=== PATIENT | female | born 1970 | race Hispanic/Latino ===

== ENCOUNTER → 2017-07-24 | Outpatient (CLI) | payer OTHER ==
[~2017-07-24] MED LIST: FLURBIPROFEN PO; LEVOFLOXACIN 250MG/D5W 50ML 50 ML ONE; LEVOFLOXACIN 500MG/D5W 100ML 100 ML IV ONE; TYLENOL WITH C1 EACH PO; VASOTEC10 M1 PO
== END ==
LOC: RAD 05:00 → OR 07-25 11:27 → EDSTATUS 07-25 13:30
PROVIDERS: ATTEND Urology
DX: Z01.818 Encounter for other preprocedural examination (principal); N20.0 Calculus of kidney
CPT/HCPCS: 81025; 93005; J1956

== ENCOUNTER → 2017-08-07 | Day surgery (SDC) | payer OTHER ==
[~2017-08-07] MED LIST changes: +DEXAMETHASONE SOD PHOS INJ 4 MG/ML VIAL ONE; +FENTANYL CITRATE/PF 100MCG/2 ML INJ ONE; +LIDOCAINE HCL 2% LOCAL INJ 5 ML SDV VIAL INJ ONE; +MIDAZOLAM HCL 2 MG/2 ML VIAL ONE; +ONDANSETRON HCL INJ 2 MG/ML VIAL ONE; +PHENYLEPHRINE HCL 1% 10 MG/ML VIAL ONE; +PROPOFOL IV EMULSION 10 MG/ML 20 ML VIAL ONE; +SEVOFLURANE INHAL SOLN 250 ML PEN BTL ONE
--- NOTE | 2017-08-07 10:17 | Operative Report ---
DATE OF PROCEDURE: August 07, 2017 PREOPERATIVE DIAGNOSIS: Right nephrolithiasis stent. POSTOPERATIVE DIAGNOSIS: Right nephrolithiasis stent. OPERATION PERFORMED: Extracorporal shock wave lithotripsy. RIG BUILDER: None. ANESTHESIA: General. CLINICAL INDICATION NOTE: This is a patient who came for treatment of a stone. She does have a stent in place. Procedure was discussed with her. She was advised of the potential benefits and complications and accepted. DESCRIPTION OF PROCEDURE AND FINDINGS: After the proper level of anesthesia was achieved, the stone was in brought into focus for treatment and treated with 2000 shocks. The stone disintegrated quite quickly. Following the procedure, the patient was transferred in satisfactory condition to the recovery room. She will be followed as an outpatient. Job#: [id number] FRANK
== END | disposition home or self-care (01) ==
LOC: OR 06:13
PROVIDERS: ATTEND Urology
PROC: 0TF3XZZ Fragmentation in Right Kidney Pelvis, External Approach (ICD-10-PCS; principal; 2017-08-07 08:30)
DX: N20.0 Calculus of kidney (principal); Z96.0 Presence of urogenital implants; M19.90 Unspecified osteoarthritis, unspecified site; I10 Essential (primary) hypertension; Z88.0 Allergy status to penicillin
CPT/HCPCS: 50590; 81025; J1100; J1956 ×2; J2001; J2250; J2370; J2405

== ENCOUNTER → 2017-08-29 | Outpatient (CLI) | payer OTHER ==
[~2017-08-29] MED LIST changes: -DEXAMETHASONE SOD PHOS INJ 4 MG/ML VIAL ONE; -FENTANYL CITRATE/PF 100MCG/2 ML INJ ONE; -LEVOFLOXACIN 250MG/D5W 50ML 50 ML ONE; -LEVOFLOXACIN 500MG/D5W 100ML 100 ML IV ONE; -LIDOCAINE HCL 2% LOCAL INJ 5 ML SDV VIAL INJ ONE; -MIDAZOLAM HCL 2 MG/2 ML VIAL ONE; -ONDANSETRON HCL INJ 2 MG/ML VIAL ONE; -PHENYLEPHRINE HCL 1% 10 MG/ML VIAL ONE; -PROPOFOL IV EMULSION 10 MG/ML 20 ML VIAL ONE; -SEVOFLURANE INHAL SOLN 250 ML PEN BTL ONE
--- NOTE | 2017-08-29 15:05 | Diagnostic Imaging Report ---
PROCEDURE:X-RAY ABDOMEN - KUB COMPARISON:None. INDICATIONS:KIDNEY STONES FINDINGS: Nonobstructed bowel gas pattern. No air-filled, dilated loops of bowel. Right double-J internal ureteral stent in place. 2-3 mm radiopaque density projects in the lower pole of the right renal shadow. 2 mm rounded radiopaque density projecting adjacent to the distal portion of the stent and over the right aspect of the sacrum may represent a ureteral calculus or phlebolith. Multiple other phleboliths are noted in the left pelvis. No acute bony abnormalities. CONCLUSION: Right double-J internal ureteral stent in place. 2-3 mm obstructing calculus in the right kidney. 2 mm radiopaque density projecting adjacent to the distal portion of the stent in the pelvis may represent a ureteral calculus or phlebolith. Christian Neil M.D. Dictated by: Christian Neil M.D. on 08/29/2017 at 15:07 Electronically approved by: Christian Neil M.D. on 08/29/2017 at 15:07
== END ==
LOC: RAD 10:47
PROVIDERS: ATTEND Urology
DX: N20.1 Calculus of ureter (principal); T19.1XXA Foreign body in bladder, initial encounter
CPT/HCPCS: 74018

== ENCOUNTER → 2017-10-02 | Day surgery (SDC) | payer OTHER ==
[~2017-10-02] MED LIST changes: +BELLADONNA/OPIUM 30 MG SUPP RC ONE; +DEXAMETHASONE SOD PHOS INJ 4 MG/ML VIAL ONE; +FENTANYL CITRATE/PF 100MCG/2 ML INJ ONE; +IOPAMIDOL 610MG/1ML 300 MG/ML VIAL IV ONE; +LEVOFLOXACIN 500MG/D5W 100ML 100 ML IV ONE; +LIDOCAINE HCL 2% LOCAL INJ 5 ML SDV VIAL INJ ONE; +ONDANSETRON HCL INJ 2 MG/ML VIAL ONE; +PROPOFOL IV EMULSION 10 MG/ML 20 ML VIAL ONE; +SEVOFLURANE INHAL SOLN 250 ML PEN BTL ONE
--- NOTE | 2017-10-02 20:55 | Operative Report ---
DATE OF PROCEDURE: October 02, 2017 PREOPERATIVE DIAGNOSIS: 1. Right nephrolithiasis. 2. Right double J stent. 3. Right hydronephrosis. 4. Right hydroureter. 5. Microhematuria. OPERATION PERFORMED: 1. Cystoscopy and left retrograde pyelogram under fluoroscopic control. This was done for a separate indication for the microhematuria not connected to the contralateral side. 2. Removal of double J stent from the right side. 3. Right retrograde pyelogram under fluoroscopic control. 4. Right ureteroscopy with laser fragmentation of stone. 5. Placement of double J stent 6-Taiwanese 22 cm long to the right side. 6. Interpretation of x-ray. Radiologist not present. 7. Supervision of fluoroscopy. Radiologist not present. [place]ER[place] OPERATOR: None. ANESTHESIA: General. CLINICAL INDICATION NOTE: This is a 47-year-old patient with history of right nephrolithiasis. She also had multiple gallstones. The patient was brought for further treatment of the kidney stones. She had some dilation of the collecting system as well. Procedure was discussed with the patient. Potential benefits and complications discussed and accepted. DESCRIPTION OF PROCEDURE AND FINDINGS: After proper level of anesthesia was achieved, the patient was placed in lithotomy position, prepped and draped in the usual sterile fashion. Urethra inspected and unremarkable. Bladder outlet is normal. Bladder mucosa is unremarkable. Double J stent is protruding from the right ureteral orifice. Retrograde pyelogram was done on the left side. Left collecting system is normal. Following this the double J stent was removed from the right side. Open-end catheter was inserted and retrograde pyelogram demonstrating some dilation of the calices as well as some area of irregularity in the ureter. The guidewire was kept in place and a flexible ureteroscopy was done. No intrinsic lesions were identified. Along the ureter some small fragments of stone were identified and fragmented further with Holmium laser using a 200 fiber. Following this a guidewire was kept in place and a double J stent 6-Taiwanese 22 cm long was properly positioned on the right side. Interpretation of x-ray was done by me. Supervision of fluoroscopy done by me. Radiologist not present. Patient tolerated the procedure well and was transferred in satisfactory condition to recovery room. She will be followed for further treatment. Job#: [id number]
--- NOTE | 2017-10-03 14:20 | Diagnostic Imaging Report ---
PROCEDURE: X-RAY RETROGRADE PYELOGRAM COMPARISON: None. INDICATIONS: Not provided. FINDINGS: A total of 22 intraoperative spot images of the abdomen and pelvis were obtained. There is retrograde cannulization of both ureters with contrast injection. Indwelling right double-J ureteral stent was removed. There is moderate right hydronephrosis. A new right double-J ureteral stent was placed following ureteroscopy involving the right renal pelvis and lower pole calyx. The left ureter and collecting system appears normal. Cumulative fluoro time: 23 seconds Cumulative area dose product: 193.46 cGycm2 Cumulative air kerma: 5.29 mGy CONCLUSION: Retrograde pyelogram as described above. Jimmy Dubon D.O. Dictated by: Jimmy Dubon D.O. on 10/03/2017 at 14:24 Electronically approved by: Jimmy Dubon D.O. on 10/03/2017 at 14:24
--- OUTSIDE RECORDS SUMMARY | 2018-01-14 13:50 | XMS REPORT ---
Author Author [facility] Address Unknown Phone Unavailable Care Team Providers Care Social And Human Services Assistant Name Role Phone GAURANG BAEZ Unavailable Unavailable Problems This patient has no known problems. Allergies, Adverse Reactions, Alerts This patient has no known allergies or adverse reactions. Medications This patient has no known medications. Results Test Description Test Time Test Comments Text Results Atomic Results Result Comments ABDOMEN-1VIEW (KUB) 2018-01-07 16:16:00 [place] [address] Patient Name: GAYATRI LEYVA MR #: [id number] : 1970 Age/Sex: 47/F Req #: [id number] Adm Physician: Ordered by: GAURANG BAEZ MD Report #: [id number] Location: [facility] Room/Bed: __ Procedure: [id number] DX/ABDOMEN-1VIEW (KUB) Exam Date: 01/07/18 Exam Time: 1515 REPORT STATUS: Signed EXAMINATION: ABDOMEN-1VIEW (KUB) INDICATION: CALCULUS OF KIDNEY COMPARISON: None FINDINGS: There is a right sided internal ureteral stent with the proximal aspect overlying the right renal pelvis and the distal aspect overlying the bladder. Bowel gas partially obscures visualization of the kidneys. There is a 2 mm calcification overlying the proximal right ureter. Phleboliths overlie the pelvis. There is a nonobstructive bowel gas pattern. No acute bony findings. IMPRESSION: Right-sided internal ureteral stent in place with likely 2 mm right proximal ureteral stone. Signed by: Dr. Chapito Stephen MD on 01/07/2018 4:22 PM Dictated By: CHAPITO STEPHEN MD 21 Transcribed By : DIRK on 01/07/181621 COPY TO: GAURANG BAEZ MD ABDOMEN-1VIEW (KUB) 2017-10-28 14:48:00 [place] [address] Patient Name: GAYATRI LEYVA MR #: [id number] : 1970 Age/Sex: 47/F Req #: [id number] Adm Physician: Ordered by: GAURANG BAEZ MD Report #: [id number] Location: [facility] Room/Bed: __ Procedure: [id number] DX/ABDOMEN-1VIEW (KUB) Exam Date: Exam Time: REPORT STATUS: Signed PROCEDURE: X-RAY ABDOMEN - KUB COMPARISON: KUB 08/29/17. INDICATIONS: CALCULUS OF KIDNEY FINDINGS: No dilated loops of bowel or abnormal air- fluid levels patterns. No free air underneath the diaphragm. Right sided double J internal ureteral stent is in place. Previously noted calcification overlying the right kidney is no longer visualized. There are two calcifications overlying the left mid kidney, one measuring 5 mm and an additional one measuring 2 mm. Multiple pelvic phleboliths are again noted. No acute bony findings. CONCLUSION: Two calcifications measuring 5 mm and 2 mm overlying the left kidney may represent stones. Right sided double J ureteral stent. Previously noted right renal stone is no longer visualized. Dictated by: CHAPITO STEPHEN M.D. on 10/28/2017 at 14:48 Electronically approved by: CHAPITO STEPHEN M.D. on 10/28/2017 at 14: 48 Dictated By: CHAPITO STEPHEN MD 47 Transcribed By: LOY on 10/28/171447 COPY TO: GAURANG BAEZ MD RETROGRADE PYELOGRAM 2017-10-03 14:25:00 [place] [address] Patient Name: GAYATRI LEYVA MR #: [id number] : 1970 Age/Sex: 47/F Req #: [id number] [facility] Physician: Ordered by: GAURANG BAEZ MD Report #: [id number] Location: OR Room/Bed: _ Procedure: [id number] DX/RETROGRADE PYELOGRAM Exam Date: 10/02/17 Exam Time: 1030 REPORT STATUS: Signed PROCEDURE: X- RAY RETROGRADE PYELOGRAM COMPARISON: None. INDICATIONS: Not provided. FINDINGS: A total of 22 intraoperative spot images of the abdomen and pelvis were obtained. There is retrograde cannulization of both ureters with contrast injection. Indwelling right double-J ureteral stent was removed. There is moderate right hydronephrosis. A new right double-J ureteral stent was placed following ureteroscopy involving the right renal pelvis and lower pole calyx. The left ureter and collecting system appears normal. Cumulative fluoro time: 23 seconds Cumulative area dose product : 193.46 cGycm2 Cumulative air kerma: 5.29 mGy CONCLUSION: Retrograde pyelogram as described above. Haile Dubon D.O. Dictated by : Haile Dubon D.O. on 10/03/2017 at 14:24 Electronically approved by: Haile Dubon D.O. on 10/03/2017 at 14:24 Dictated By: HAILE DUBON DO 24 Transcribed By: LOY on 10/03/171424 COPY TO: GAURANG BAEZ MD ABDOMEN-1VIEW (KUB) [place] [address] Patient Name: GAYATRI LEYVA MR #: [id number] : 1970 Age/Sex: 47/F Req #: [id number] Adm Physician: Ordered by: GAURANG BAEZ MD Report #: [id number] Location: [facility] Room/Bed: Procedure: [id number] DX/ABDOMEN-1VIEW (KUB) Exam Date: 08/29/17 Exam Time: 1140 REPORT STATUS: Signed PROCEDURE: X-RAY ABDOMEN - KUB COMPARISON: None. INDICATIONS: KIDNEY STONES FINDINGS: Nonobstructed bowel gas pattern. No air-filled, dilated loops of bowel. Right double-J internal ureteral stent in place. 2-3 mm radiopaque density projects in the lower pole of the right renal shadow. 2 mm rounded radiopaque density projecting adjacent to the distal portion of the stent and over the right aspect of the sacrum may represent a ureteral calculus or phlebolith. Multiple other phleboliths are noted in the left pelvis. No acute bony abnormalities. CONCLUSION: Right double-J internal ureteral stent in place. 2-3 mm obstructing calculus in the right kidney. 2 mm radiopaque density projecting adjacent to the distal portion of the stent in the pelvis may represent a ureteral calculus or phlebolith. Gavin Neil M.D. Dictated by: Gavin Neil M.D. on 08/29/2017 at 15: 07 Electronically approved by: Gavin Neil M.D. on 08/29/2017 at 15:07 Dictated By: GAVIN NEIL MD 1507 Transcribed By: LOY on 08/29/17 1507 COPY TO: GAURANG BAEZ MD
== END | disposition home or self-care (01) ==
LOC: OR 08:32
PROVIDERS: ATTEND Urology
DX: N20.1 Calculus of ureter (principal); N20.0 Calculus of kidney; N13.30 Unspecified hydronephrosis; K80.20 Calculus of gallbladder without cholecystitis without obstruction; I10 Essential (primary) hypertension; Z88.0 Allergy status to penicillin; Z01.810 Encounter for preprocedural cardiovascular examination
CPT/HCPCS: 52356; 74420; 81025; 93005; J1100; J1956; J2001; J2405; Q9967; C2617

== ENCOUNTER → 2017-10-28 | Outpatient (CLI) | payer OTHER ==
[~2017-10-28] MED LIST changes: -BELLADONNA/OPIUM 30 MG SUPP RC ONE; -DEXAMETHASONE SOD PHOS INJ 4 MG/ML VIAL ONE; -FENTANYL CITRATE/PF 100MCG/2 ML INJ ONE; -IOPAMIDOL 610MG/1ML 300 MG/ML VIAL IV ONE; -LEVOFLOXACIN 500MG/D5W 100ML 100 ML IV ONE; -LIDOCAINE HCL 2% LOCAL INJ 5 ML SDV VIAL INJ ONE; -ONDANSETRON HCL INJ 2 MG/ML VIAL ONE; -PROPOFOL IV EMULSION 10 MG/ML 20 ML VIAL ONE; -SEVOFLURANE INHAL SOLN 250 ML PEN BTL ONE
--- NOTE | 2017-10-28 14:54 | Diagnostic Imaging Report ---
PROCEDURE:X-RAY ABDOMEN - KUB COMPARISON:KUB 08/29/17. INDICATIONS:CALCULUS OF KIDNEY FINDINGS: No dilated loops of bowel or abnormal air-fluid levels patterns. No free air underneath the diaphragm. Right sided double J internal ureteral stent is in place. Previously noted calcification overlying the right kidney is no longer visualized. There are two calcifications overlying the left mid kidney, one measuring 5 mm and an additional one measuring 2 mm. Multiple pelvic phleboliths are again noted. No acute bony findings. CONCLUSION: Two calcifications measuring 5 mm and 2 mm overlying the left kidney may represent stones. Right sided double J ureteral stent. Previously noted right renal stone is no longer visualized. Dictated by: CHAPITO STEPHENSON M.D. on 10/28/2017 at 14:48 Electronically approved by: CHAPITO STEPHENSON M.D. on 10/28/2017 at 14:48
== END ==
LOC: RAD 12:59
PROVIDERS: ATTEND Urology
DX: N20.0 Calculus of kidney (principal)
CPT/HCPCS: 74018

== ENCOUNTER → 2017-12-05 | Day surgery (SDC) | payer OTHER ==
[~2017-12-05] MED LIST changes: +FENTANYL CITRATE/PF 100MCG/2 ML INJ ONE; +LEVOFLOXACIN 250MG/D5W 50ML 50 ML ONE; +LEVOFLOXACIN 500MG/D5W 100ML 100 ML IV ONE; +MIDAZOLAM HCL 2 MG/2 ML VIAL ONE
[2017-12-05 14:50] VITALS: BP 128/78
--- NOTE | 2017-12-05 18:12 | Operative Report ---
DATE OF PROCEDURE: December 05, 2017 SERVICE: Urology. PREOPERATIVE DIAGNOSES: 1. Bilateral nephrolithiasis. 2. Right double J stent. 3. Microhematuria. POSTOPERATIVE DIAGNOSES: 1. Bilateral nephrolithiasis. 2. Right double J stent. 3. Microhematuria. OPERATION PERFORMED: Extracorporeal shockwave lithotripsy and lithotripsy of left kidney stone. [place] ATTENDANT: None. ANESTHESIA: General. CLINICAL INDICATION NOTE: This is a 47-year-old patient who has stone in both sides. She does have a stent on the right side. She was brought for lithotripsy of left kidney stone. Procedure was discussed with the patient. She knows the potential benefits and complications. DESCRIPTION OF PROCEDURE AND FINDINGS: After proper level of anesthesia was achieved, the patient was placed in supine position. The stone was brought to focus of treatment and treated with 1500 shocks initially at 60 per minute, then 90 per minute and eventually 120 per minute. The stone disintegrated very well. Following this, fluoroscopy was done on the right side. No stones were identified on fluoroscopy. Patient tolerated procedure well, was transferred in satisfactory condition to recovery room. She will be followed as outpatient. Postop orders given. Job#: [id number] EV
== END | disposition home or self-care (01) ==
LOC: OR 10:57
PROVIDERS: ATTEND Urology
DX: N20.0 Calculus of kidney (principal); Z96.0 Presence of urogenital implants; I10 Essential (primary) hypertension; Z88.0 Allergy status to penicillin
CPT/HCPCS: 50590; 81025; J1956 ×2; J2250

== ENCOUNTER → 2018-01-07 | Outpatient (CLI) | payer OTHER ==
[~2018-01-07] MED LIST changes: -FENTANYL CITRATE/PF 100MCG/2 ML INJ ONE; -LEVOFLOXACIN 250MG/D5W 50ML 50 ML ONE; -LEVOFLOXACIN 500MG/D5W 100ML 100 ML IV ONE; -MIDAZOLAM HCL 2 MG/2 ML VIAL ONE
--- NOTE | 2018-01-07 16:25 | Diagnostic Imaging Report ---
EXAMINATION: ABDOMEN-1VIEW (KUB) INDICATION: CALCULUS OF KIDNEY COMPARISON: None FINDINGS: There is a right sided internal ureteral stent with the proximal aspect overlying the right renal pelvis and the distal aspect overlying the bladder. Bowel gas partially obscures visualization of the kidneys. There is a 2 mm calcification overlying the proximal right ureter. Phleboliths overlie the pelvis. There is a nonobstructive bowel gas pattern. No acute bony findings. IMPRESSION: Right-sided internal ureteral stent in place with likely 2 mm right proximal ureteral stone. Signed by: Dr. Axel Stephen MD on 01/07/2018 4:22 PM
== END ==
LOC: RAD 15:19
PROVIDERS: ATTEND Urology
DX: N20.0 Calculus of kidney (principal)
CPT/HCPCS: 74018; 81025

== ENCOUNTER → 2018-01-22 | Day surgery (SDC) | payer OTHER ==
[~2018-01-22] MED LIST changes: +DEXAMETHASONE SOD PHOS INJ 4 MG/ML VIAL ONE; +FENTANYL CITRATE/PF 100MCG/2 ML INJ ONE; +IOPAMIDOL 610MG/1ML 300 MG/ML VIAL IV ONE; +LEVOFLOXACIN 500MG/D5W 100ML 100 ML IV ONE; +LIDOCAINE HCL 2% LOCAL INJ 5 ML SDV VIAL INJ ONE; +MIDAZOLAM HCL 2 MG/2 ML VIAL ONE; +ONDANSETRON HCL INJ 2 MG/ML VIAL ONE; +PROPOFOL IV EMULSION 10 MG/ML 20 ML VIAL ONE; +SEVOFLURANE INHAL SOLN 250 ML PEN BTL ONE
[2018-01-22 15:40] VITALS: BP 148/81
--- NOTE | 2018-01-22 19:35 | Operative Report ---
DATE OF PROCEDURE: January 22, 2018 PREOPERATIVE DIAGNOSES 1. History of right nephrolithiasis. 2. Right double J stent. 3. Microhematuria. 4. Cystocele. POSTOPERATIVE DIAGNOSES 1. History of right nephrolithiasis. 2. Right double J stent. 3. Microhematuria. 4. Cystocele. OPERATION PERFORMED: 1. Cystoscopy and left retrograde pyelogram under fluoroscopic control. This is not related to the contralateral side, part of the assessment of the microhematuria. 2. Removal of double J stent from the right side. 3. Right retrograde pyelogram under fluoroscopic control. 4. Right ureteroscopy. 5. Interpretation of x-ray. Radiologist not present. 6. Supervision of fluoroscopy. Radiologist not present. 7. Pelvic exam under anesthesia. ANESTHESIA: General. CLINICAL INDICATION NOTE: This is a 47-year-old patient who was treated in the past for nephrolithiasis. She does have a double J stent in place on the right side. Patient also had cystocele and microhematuria. The patient was brought for removal of the stent and reassessment of the upper tract. DESCRIPTION OF PROCEDURE AND FINDINGS: After proper level of anesthesia was achieved, the patient was placed in lithotomy position, prepped and draped in sterile fashion. Urethra inspected is unremarkable. Bladder mucosa is normal except for minimal irritation around the right ureteral orifice where a double J stent is protruding. The bladder is pushed somewhat down due to the cystocele. Open-end catheter was inserted to the left side and retrograde pyelogram demonstrating a normal upper tract. No obstruction. Following this the double J stent was removed from the right side. Retrograde pyelograms were done under fluoroscopic control. No definitive stone could be identified. Therefore, we proceeded with ureteroscopy. A guidewire was kept in place and a flexible ureteroscopy was done. Tiny little fragments of stone were seen in the pelvis, however, they are extremely small. No other stones were identified along the ureter. It was elected not to leave the double J stent. The bladder was then irrigated. The scope was removed. Pelvic exam was done under anesthesia and no adnexal masses were palpable or midline masses. Patient tolerated the procedure well and was transferred in satisfactory condition to recovery room. She will be followed. Job#: [id number]
--- NOTE | 2018-01-23 09:27 | Diagnostic Imaging Report ---
Retrograde pyelogram COMPARISON: KUB 01/07/2018 HISTORY: C-arm assist for retrograde pyelogram TECHNIQUE: Retrograde pyelogram was performed by urologist. Multiple abdominal spot radiographs from the procedure were made available for evaluation. RADIATION DOSE: Fluoroscopy Time: 1 min Dose (Kerma) Area Product: 67 cGycm2 Air Kerma (AK) value has been reviewed. It is below the limits set by the Radiation Protocol Committee (RPC) committee. DISCUSSION: Multiple fluoroscopic images demonstrates contrast within the right and left collecting system with mild prominence hydronephrosis on the right. No large filling defects on limited evaluation. There appears to be a stent versus catheter on the right. IMPRESSION: Limited spot images from a fluoroscopic retrograde pyelogram as detailed above. Signed by: Dr. Clemencia Carroll M.D. on 01/23/2018 9:24 AM
== END | disposition home or self-care (01) ==
LOC: OR 13:06
PROVIDERS: ATTEND Urology
DX: N20.0 Calculus of kidney (principal); Z46.6 Encounter for fitting and adjustment of urinary device; N81.10 Cystocele, unspecified; I10 Essential (primary) hypertension; Z01.810 Encounter for preprocedural cardiovascular examination; Z88.0 Allergy status to penicillin
CPT/HCPCS: 52351; 74420; 81025; 93005; J1100; J1956; J2001; J2250; J2405; Q9967